=== PATIENT | male | born 1965 | race American Indian/Alaskan Native ===

== ENCOUNTER 2016-10-07 23:46 | Emergency (ER) | payer MEDICAID ==
--- NOTE | 2016-10-08 05:41 | Emergency Department Report ---
ED Recheck HPI - General Chief Complaint: Extremity Injury, Lower Stated Complaint: RT FOOT PAIN Time Seen by Provider: 10/08/16 05:06 Source: patient Mode of arrival: Ambulatory Limitations: No Limitations - History of Present Illness Initial Comments: Patient here requesting refill on Neurontin. He said he takes it for his right footpain he said he has chronic back pain that shoots down his legs into his foot and his neurologist said put him on Neurontin. Patient said he takes it 3 times a day but he does not know the dose. I told him that I cannot put him on Neurontin unless he knows the dose. He denies any fever or chills. Reports pain is 5 out of 10. Pain is achy. Denies being diabetic. Patient has a history of chronic pain and neuropathy. MD Complaint: medication refill request Returns Today for: request for prescription Context: ran out of medication Associated Symptoms: none - Related Data Previous Rx's Medication Instructions Recorded Last Taken Type traMADol [Ultram 50 MG tab] 50 mg PO Q6HR PRN #20 tablet 10/08/16 Unknown Rx Allergies Allergy/AdvReac Type Severity Reaction Status Date / Time No Known Allergies Allergy Unverified 10/08/16 00:21 ED Review of Systems ROS: Stated complaint: RT FOOT PAIN Other details as noted in HPI Comment: All other systems reviewed and negative Constitutional: denies: chills, fever Respiratory: no symptoms reported Cardiovascular: denies: chest pain, palpitations, edema, syncope Gastrointestinal: denies: abdominal pain, nausea, vomiting, diarrhea Musculoskeletal: arthralgia. denies: back pain Skin: denies: rash Neurological: denies: headache, weakness, numbness, paresthesias, confusion, abnormal gait, vertigo ED Past Medical Hx - Past Medical History Previous Medical History?: Yes Additional medical history: chronic foot pain - Surgical History Past Surgical History?: No - Family History Family history: no significant - Social History Smoking Status: Never Smoker Substance Use Type: None - Medications Home Medications: Home Medications Medication Instructions Recorded Confirmed Last Taken Type traMADol [Ultram 50 MG tab] 50 mg PO Q6HR PRN #20 tablet 10/08/16 Unknown Rx ED Physical Exam - General Limitations: No Limitations General appearance: alert, in no apparent distress - Head Head exam: Present: atraumatic, normocephalic, normal inspection - Eye Eye exam: Present: normal appearance, PERRL, EOMI Pupils: Present: normal accommodation - Neck Neck exam: Present: normal inspection, full ROM. Absent: tenderness, meningismus, lymphadenopathy - Respiratory Respiratory exam: Present: normal lung sounds bilaterally. Absent: respiratory distress, chest wall tenderness - Cardiovascular Cardiovascular Exam: Present: regular rate, normal rhythm, normal heart sounds - Extremities Exam Extremities exam: Present: normal inspection, full ROM, normal capillary refill. Absent: tenderness, pedal edema, joint swelling, calf tenderness - Neurological Exam Neurological exam: Present: alert, oriented X3, normal gait, reflexes normal. Absent: motor sensory deficit - Psychiatric Psychiatric exam: Present: normal affect, normal mood - Skin Skin exam: Present: warm, dry, intact, normal color. Absent: rash ED Course Vital Signs 10/08/16 00:22 Temperature 98.4 F Pulse Rate 77 Respiratory 16 Rate Blood Pressure 123/81 O2 Sat by Pulse 99 Oximetry - Reevaluation(s) Reevaluation #1: 10/08/16 06:44 Patient stable throughout ED stay. I discussed the patient that I can't give him Ultram for a few days but he will need to know the dose of his Neurontin for refill. I also discussed with him that he needs to go to [facility]. Does not have a primary care physician for management of chronic medical problem. ED Recheck MDM - Differential Diagnosis Prescription Refill(s) - Medical Decision Making ED course: An here requesting refill on Neurontin and he does not go to dialysis that he takes. He has chronic lumbar radiculopathy and he said he takes Neurontin 3 times a day. He said he has seen neurologists at [place] in the past but he has not seen an urologist at present. I discussed the patient that I can't give him Ultram but I will not refill his Neurontin because I do not know the dose and neither does he. Patient agreed and also agreed to follow -up with [facility]. discharged home in stable condition with prescription for Neurontin Critical care attestation.: If time is entered above; I have spent that time in minutes in the direct care of this critically ill patient, excluding procedure time. ED Disposition Clinical Impression: Medication refill Disposition: DISCHARGED TO HOME OR SELFCARE Is pt being admited?: No Does the pt Need Aspirin: No Condition: Stable Instructions: Chronic Pain (ED) Additional Instructions: Please follow-up with [facility] in 2-3 days for management of chronic medical problem if you do not have a primary care physician. He did have a primary care physician please call him today to schedule an appointment for follow-up visit. Take medication as prescribed. Prescriptions: traMADol [Ultram 50 MG tab] 50 mg PO Q6HR PRN #20 tablet PRN Reason: Pain Referrals: PRIMARY CARE,MD [Primary Care Provider] - 2-3 Days [facility] [Outside] - 2-3 Days Forms: Work/School Release Form(ED)
[2016-10-08 06:56] VITALS: BP 120/70
== END 2016-10-08 07:05 | disposition home or self-care (01) ==
LOC: ED 23:46
DX: Z76.0 Encounter for issue of repeat prescription (principal); G89.29 Other chronic pain
CPT/HCPCS: 99282

== ENCOUNTER 2017-02-01 00:55 | Emergency (ER) | payer MEDICAID, OTHER ==
[2017-02-01 01:05] VITALS: BP 123/84
[2017-02-01] MEDS ORDERED: TORADOL IM ONE (04:11)
[2017-02-01] MEDS ORDERED: DECADRON IM STA (04:11)
--- NOTE | 2017-02-01 04:11 | Emergency Department Report ---
HPI - General Chief Complaint: Back Pain/Injury Time Seen by Provider: 02/01/17 04:11 - HPI HPI: This patient and has chronic back pain and here because he states that his insurance does not work at the pain clinic that he used to go to. He is complaining of lower back pain and right foot pain 2 months. He said he is in the process of getting a new pain clinic and he would like to have some pain medicine. Pain to right foot is 9 out of 10 and lower back is 8 out of 10. Denies any loss of bowel or bladder function. He said it is numb to the side of his right big toe and this is not new. Patient said he is mental podiatrists and they told him that he have flat foot and gave him inserted but he has a minimal oriented. Pills to back is achy. Denies any new injuries. He was here on 10/08/2016 and was given tramadol. Patient studies been taking [id number] medication without any help. Denies any nausea or vomiting. Denies any urinary burning frequency or urgency. Denies any fever or chills. Denies any abdominal pain. ED Past Medical Hx - Past Medical History Previous Medical History?: Yes Additional medical history: chronic foot pain / CHRONIC BACK PAIN - Surgical History Past Surgical History?: No - Family History Family history: no significant - Social History Smoking Status: Current Every Day Smoker Substance Use Type: None Other Social History: Patient said he single - Medications Home Medications: Home Medications Medication Instructions Recorded Confirmed Last Taken Type traMADol [Ultram 50 MG tab] 50 mg PO Q6HR PRN #20 tablet 02/01/17 Unknown Rx ED Review of Systems ROS: Stated complaint: BACK/FOOT PAIN Other details as noted in HPI Comment: All other systems reviewed and negative Constitutional: denies: chills, fever Eyes: denies: eye pain, vision change ENT: denies: ear pain, throat pain, congestion Respiratory: no symptoms reported Cardiovascular: denies: chest pain, palpitations, edema, syncope Gastrointestinal: denies: abdominal pain, nausea, vomiting, diarrhea, constipation Genitourinary: denies: urgency, dysuria, frequency, hematuria, discharge, testicular pain, testicular mass Musculoskeletal: back pain, arthralgia. denies: joint swelling, myalgia Skin: denies: rash Neurological: numbness (right great toe). denies: headache, weakness, paresthesias, confusion, abnormal gait, vertigo Physical Exam - Physical Exam Vital Signs: Vital Signs 02/01/17 00:59 Temperature 98.4 F Pulse Rate 68 Respiratory 20 Rate Blood Pressure 123/84 O2 Sat by Pulse 100 Oximetry General: This is a 51-year-old male well-nourished well-developed in no acute distress. Physical Exam: Head: Normocephalic, atraumatic. No abrasions, laceration or contusion Neck: Supple, no adenopathy. Full range of motion. No C-spine tenderness. No muscular tenderness Mouth: Moist, no pharyngeal exudate or erythema. Uvula is midline and oral airways patent. Tongue is normal. No trismus. No peritonsillar abscess. Abdomen: Nontender the palpation in all quadrants, no guarding or rebound tenderness. No CVA tenderness and normal bowel sounds in all quadrants. Extremity: No clubbing, cyanosis or edema. +2 pulses in all extremities. No neurovascular compromise. Capillary refill is less than 3 seconds. Good color , sensation, movement and temperature in all extremities. Able to ambulate without any difficulties. Both feet without any laceration, abrasions, erythema , dryness or tenderness to palpate. MSK: Full Range of motion to all extremities, no joint crepitus, deformity, erythema, swelling. No signs of tendon or ligament injury. +5/5 strength in all extremities Skin: Clean dry and intact, no rash or lesions. PSYCH: Normal mood and behavior. Neurological: GCS of 15, speech is clear and fluid, alert and oriented 3. Normal gait, negative Romberg and negative pronator drift. No motor or sensory deficit. No focal neurological deficit. Normal 2 point discrimination. Normal sensation to light touch. No facial drooping noted. Back: No vertebral tenderness, no paraspinal tenderness, no saddle anesthesia,. Patient able to relate without any difficulties. She unable to squat without any difficulties. ED Course Vital Signs 02/01/17 00:59 Temperature 98.4 F Pulse Rate 68 Respiratory 20 Rate Blood Pressure 123/84 O2 Sat by Pulse 100 Oximetry - Reevaluation(s) Reevaluation #1: 02/01/17 05:27 Patient given Toradol and Decadron in the emergency room for pain. Which she voiced relieve this pain. ED Medical Decision Making - Medical Decision Making ED course: Patient here with chronic back pain with history of lower back pain from previous injuries. He is also complaining of chronic right foot pain this has been going on for 2 months it is been seen by orthopedic doctor. Patient has been evaluated and I gave him Decadron 10 mg IM and Toradol 60 mg IM in the emergency room which alleviated his bach and foot pain. I discussed with him that he will need to follow-up with Dr. Sykes and also Dr. Quach for further. Patient said he had pain doctor in the past but they dropped him and he is in the process of finding another pain clinic Diagnostic and labs: No diagnostic test necessary Review of previous visits. Patient has been here in the past for management of pain. Assessment: Acute and chronic back pain, arthralgia right foot. Chronic pain Plan follow-up: Patient given Decadron and Toradol in the emergency room. She discharged home with prescription for tramadol which she has had in the past. He is to follow-up with orthopedic doctor and distribution lead. Critical care attestation.: If time is entered above; I have spent that time in minutes in the direct care of this critically ill patient, excluding procedure time. ED Disposition Clinical Impression: Acute exacerbation of chronic low back pain, Arthralgia of right foot, Paresthesia Disposition: DC-01 TO HOME OR SELFCARE Is pt being admited?: No Does the pt Need Aspirin: No Condition: Stable Instructions: Paresthesia (ED), Lumbar Radiculopathy (ED), Arthralgia (ED), Chronic Back Pain (ED) Additional Instructions: Please follow up with primary care as recommended Increase fluid intake Take medication as prescribed . Follow-up with orthopedic doctor as instructed All up with distribution lead as instructed Prescriptions: traMADol [Ultram 50 MG tab] 50 mg PO Q6HR PRN #20 tablet PRN Reason: Pain Referrals: PRIMARY CARE, [Primary Care Provider] - 3-5 Days HAILEY QUACH DPM [Staff Physician] - 3-5 Days LIV SYKES MD [Staff Physician] - 3-5 Days
== END 2017-02-01 05:36 | disposition home or self-care (01) ==
LOC: ED 00:55
DX: M54.5 Low back pain (principal); M79.671 Pain in right foot; R20.9 Unspecified disturbances of skin sensation; G89.29 Other chronic pain; F17.200 Nicotine dependence, unspecified, uncomplicated
CPT/HCPCS: 96372; 99282; J1100; J1885

== ENCOUNTER 2019-01-22 16:10 | Emergency (ER) | payer OTHER ==
[2019-01-22 16:47] VITALS: BP 128/79
--- NOTE | 2019-01-22 16:49 | Event Note ---
ED Screening Note ED Screening Note: pt presents with chronic back pain. states he sees a pain specialist in [facility] [place] his pain specialist was moved to [place]. states he also has a primary care doctor. states he is waiting for a referral to see the new pain specialist. states he is seeing a new orthopedic tomorrow. states he has been in physical therapy in the past. pt is ambulatory. denies any bowel or bladder incontinence. pt denies any unilateral weakness. PMHx arthritis. no allergies to meds. no hx of DM. pt states he is now also checking to the ER for chest pain This initial assessment/diagnostic orders/clinical plan/treatment(s) is/are subject to change based on patients health status, clinical progression and re- assessment by fellow clinical providers in the ED. Further treatment and workup at subsequent clinical providers discretion. Patient/guardian urged not to elope from the ED as their condition may be serious if not clinically assessed and managed. Initial orders include: CP protocol
[2019-01-22 17:22] LABS: Eosinophils # (Auto) 0.1 K/mm3 (0.0-0.4); Eosinophils % (Auto) 2.6 % (0.0-4.3); Hematocrit 43.7 % (35.5-45.6); Hemoglobin 14.4 gm/dl (11.8-15.2); Lymphocytes # (Auto) 2.2 K/mm3 (1.2-5.4); Lymphocytes % (Auto) 48.3 % (13.4-35.0); Mean Corpuscular HGB Conc 33 % (32-34); Mean Corpuscular Volume 95 fl (84-94); Monocytes # (Auto) 0.4 K/mm3 (0.0-0.8); Monocytes % (Auto) 8.4 % (0.0-7.3); Platelet Count 192 K/mm3 (140-440); Red Blood Count 4.59 M/mm3 (3.65-5.03); Red Cell Distribution Width 13.7 % (13.2-15.2)
--- NOTE | 2019-01-22 17:24 | XRay Report ---
CHEST 2 VIEWS INDICATION / CLINICAL INFORMATION: Chest Pain. COMPARISON: None available. FINDINGS: SUPPORT DEVICES: None. HEART / MEDIASTINUM: No significant abnormality. LUNGS / PLEURA: No significant pulmonary or pleural abnormality. No pneumothorax. ADDITIONAL FINDINGS: No significant additional findings. IMPRESSION: 1. No acute findings. Signer Name: Migue Saleem MD Signed: 01/22/2019 5:20 PM Workstation Name: [id number]
[2019-01-22 17:49] LABS: Alanine Aminotransferase 11 units/L (7-56); Albumin 4.2 g/dL (3.9-5); BUN/Creatinine Ratio 13; Blood Urea Nitrogen 10 mg/dL (9-20); Hemolysis Index 14
[2019-01-22] MEDS ORDERED: PERCOCET 5/325 PO ONE (19:22)
[2019-01-22] MEDS ORDERED: TORADOL IM ONE (19:22)
[2019-01-22] MEDS ORDERED: DECADRON IM ONE (19:22)
[2019-01-22] MEDS ORDERED: ZOFRAN ODT PO ONE (19:22)
--- NOTE | 2019-01-22 21:05 | Emergency Department Report ---
ED General Adult HPI - General Chief complaint: Chest Pain Stated complaint: NECK/BACK PAIN Time Seen by Provider: 01/22/19 16:44 Source: patient Mode of arrival: Ambulatory Limitations: No Limitations - History of Present Illness Initial comments: Patient is a 53-year-old -[place] male with a history of chronic back or neck pain presents to the ED with acute exacerbation of his chronic back pain and neck pain after running out of his chronic pain medications for the last 1 month. Patient states that his in the transition period, and changing his current pain specialist. Patient states that he is currently waiting for a scheduled appointment with a new pain specialist but has not had any of his chronic pain management medications for over 2 months. Patient states that he usually takes 5 Percocet tablets per day with Gabapentin 800 mg 3 times a day. Patient states that the pain has worsened in the last 2 weeks especially given that he has not taken his medications. Patient denies chest pain, shortness of breath, traumatic injury, heavy lifting, numbness and tingling of the upper and lower extremities bilaterally, change in vision, headache, syncope, seizures, nausea and vomiting or abdominal pain, cough or fever and chills. MD Complaint: chronic back pain exacerbation, neck pain -: Gradual, year(s) (many) Location: back Radiation: back, neck Severity scale (0 -10): 6 Quality: aching, sharp Consistency: constant Improves with: none Worsens with: movement Associated Symptoms: denies other symptoms. denies: confusion, chest pain, cough, diaphoresis, fever/chills, loss of appetite, malaise, nausea/vomiting, rash, seizure, shortness of breath, syncope, weakness, other Treatments Prior to Arrival: none - Related Data Home Medications Medication Instructions Recorded Confirmed Last Taken ALBUTEROL Inhaler(NF) [VENTOLIN 2 puff IH BID 04/16/18 04/28/18 04/23/18 Inhaler(NF)] Cholecalciferol (Vitamin D3) 10,000 unit PO DAILY 04/16/18 04/28/18 04/18/18 [Vitamin D3 10,000 unit] Gabapentin [Neurontin] 300 mg PO QID 04/16/18 04/28/18 04/18/18 Lactulose [Constulose] 10 gm PO PRN PRN 04/16/18 04/28/18 04/18/18 Naloxegol Oxalate [Movantik] 25 mg PO DAILY 04/16/18 04/28/18 04/18/18 Naproxen Sodium [Aleve] 220 mg PO PRN PRN 04/16/18 04/28/18 04/18/18 Omeprazole Magnesium [PriLOSEC Otc] 20 mg PO QDAY 04/16/18 04/28/18 04/18/18 Oxycodone HCl/Acetaminophen 1 each PO 5XD PRN 04/16/18 04/28/18 04/28/18 [Percocet 10/325 mg] Previous Rx's Medication Instructions Recorded Last Taken Type Gabapentin [Neurontin] 800 mg PO Q8H PRN #30 tablet 01/22/19 Unknown Rx Naproxen [Naproxen DR] 375 mg PO Q12H PRN #20 tablet.dr 01/22/19 Unknown Rx Prednisone [predniSONE 10 mg 10 mg PO .TAPER #1 tab.ds.pk 01/22/19 Unknown Rx (6-Day Pack, 21 Tabs)] Tizanidine HCl [Zanaflex 4mg CAP] 4 mg PO Q8H PRN #21 capsule 01/22/19 Unknown Rx traMADol [Ultram] 50 mg PO Q6HR PRN 3 Days #12 tablet 01/22/19 Unknown Rx Allergies Allergy/AdvReac Type Severity Reaction Status Date / Time No Known Allergies Allergy Verified 01/22/19 16:11 ED Review of Systems ROS: Stated complaint: NECK/BACK PAIN Other details as noted in HPI Constitutional: denies: chills, fever Eyes: denies: eye pain, eye discharge, vision change ENT: denies: ear pain, throat pain Respiratory: denies: cough, shortness of breath, wheezing Cardiovascular: denies: chest pain, palpitations Endocrine: no symptoms reported Gastrointestinal: denies: abdominal pain, nausea, diarrhea Genitourinary: denies: urgency, dysuria Musculoskeletal: back pain (mid-posterior thoracic and neck pain). denies: joint swelling, arthralgia Skin: denies: rash, lesions Neurological: denies: headache, weakness, paresthesias Psychiatric: denies: anxiety, depression Hematological/Lymphatic: denies: easy bleeding, easy bruising ED Past Medical Hx - Past Medical History Previous Medical History?: Yes Hx Hypertension: No Hx GERD: Yes Hx HIV: No Additional medical history: chronic foot pain / CHRONIC BACK PAIN - Surgical History Past Surgical History?: No - Social History Smoking Status: Current Every Day Smoker - Medications Home Medications: Home Medications Medication Instructions Recorded Confirmed Last Taken Type ALBUTEROL Inhaler(NF) [VENTOLIN 2 puff IH BID 04/16/18 04/28/18 04/23/18 History Inhaler(NF)] Cholecalciferol (Vitamin D3) 10,000 unit PO DAILY 04/16/18 04/28/18 04/18/18 History [Vitamin D3 10,000 unit] Gabapentin [Neurontin] 300 mg PO QID 04/16/18 04/28/18 04/18/18 History Lactulose [Constulose] 10 gm PO PRN PRN 04/16/18 04/28/18 04/18/18 History Naloxegol Oxalate [Movantik] 25 mg PO DAILY 04/16/18 04/28/18 04/18/18 History Naproxen Sodium [Aleve] 220 mg PO PRN PRN 04/16/18 04/28/18 04/18/18 History Omeprazole Magnesium [PriLOSEC Otc] 20 mg PO QDAY 04/16/18 04/28/18 04/18/18 History Oxycodone HCl/Acetaminophen 1 each PO 5XD PRN 04/16/18 04/28/18 04/28/18 History [Percocet 10/325 mg] Gabapentin [Neurontin] 800 mg PO Q8H PRN #30 tablet 01/22/19 Unknown Rx Naproxen [Naproxen DR] 375 mg PO Q12H PRN #20 tablet.dr 01/22/19 Unknown Rx Prednisone [predniSONE 10 mg 10 mg PO .TAPER #1 tab.ds.pk 01/22/19 Unknown Rx (6-Day Pack, 21 Tabs)] Tizanidine HCl [Zanaflex 4mg CAP] 4 mg PO Q8H PRN #21 capsule 01/22/19 Unknown Rx traMADol [Ultram] 50 mg PO Q6HR PRN 3 Days #12 tablet 01/22/19 Unknown Rx ED Physical Exam - General Limitations: No Limitations General appearance: alert, in no apparent distress - Head Head exam: Present: atraumatic, normocephalic, normal inspection - Eye Eye exam: Present: normal appearance, PERRL, EOMI. Absent: scleral icterus, conjunctival injection, nystagmus, periorbital swelling, periorbital tenderness, other - ENT ENT exam: Present: normal exam, normal orophraynx, mucous membranes moist, TM's normal bilaterally, normal external ear exam - Neck Neck exam: Present: normal inspection, tenderness (Palpable cervical paraspinal musculoskeletal tenderness), full ROM - Respiratory Respiratory exam: Present: normal lung sounds bilaterally. Absent: respiratory distress, wheezes, rales, rhonchi, chest wall tenderness, accessory muscle use, decreased breath sounds, prolonged expiratory - Cardiovascular Cardiovascular Exam: Present: regular rate, normal rhythm. Absent: systolic murmur, diastolic murmur, rubs, gallop - GI/Abdominal GI/Abdominal exam: Present: soft, normal bowel sounds. Absent: distended, tenderness, guarding, hyperactive bowel sounds, hypoactive bowel sounds, organomegaly - Rectal Rectal exam: Present: deferred - Extremities Exam Extremities exam: Present: normal inspection, full ROM, normal capillary refill - Back Exam Back exam: Present: normal inspection, full ROM, tenderness, muscle spasm, paraspinal tenderness (Palpable lumbosacral paraspinal musculoskeletal tenderness). Absent: CVA tenderness (L) - Neurological Exam Neurological exam: Present: alert, oriented X3, CN II-XII intact, normal gait, reflexes normal - Psychiatric Psychiatric exam: Present: normal affect, normal mood - Skin Skin exam: Present: warm, dry, intact, normal color. Absent: rash ED Course Vital Signs 01/22/19 16:45 Temperature 98 F Pulse Rate 59 L Respiratory 18 Rate Blood Pressure 128/79 [Right] O2 Sat by Pulse 100 Oximetry - Reevaluation(s) Reevaluation #1: 01/22/19 21:07 The patient is alert and oriented 3 and is not in distress with normal vital signs. Patient is treated for pain in the ED and lab test results are unremarkable including troponin levels. EKG shows sinus bradycardia with a ventricular rate of [address] or T-wave abnormalities. Chest x-ray shows no acute cardiopulmonary abnormalities or thoracic spine abnormalities. On r eevaluation, patient's pain is well-controlled with medications and will discharge home on pain medications and muscle relaxants and advised to follow-up with his primary clinic in 2-3 days for reevaluation. Patient was advised that the ED is not responsible for the management of his chronic back pain but that he needs to be referred to a pain clinic soon in order to establish care. Patient was advised to return to the ED immediately if symptoms get worse. 01/22/19 21:08 ED Medical Decision Making - Lab Data Result diagrams: 01/22/19 17:15 01/22/19 17:15 - EKG Data Rate: bradycardia - EKG Data Interpretation: normal EKG 01/22/19 21:09 Sinus bradycardia with ventricular rate of 54 bpm, and no ST or T wave abnormalities - Radiology Data Radiology results: report reviewed, image reviewed chest x-ray: No acute cardiopulmonary abnormalities - Medical Decision Making The patient is alert and oriented 3 and is not in distress with normal vital signs. Patient is treated for pain in the ED and lab test results are unremarkable including troponin levels. EKG shows sinus bradycardia with a ventricular rate of [address] or T-wave abnormalities. Chest x-ray shows no acute cardiopulmonary abnormalities or thoracic spine abnormalities. On reevaluation, patient's pain is well-controlled with medications and will discharge home on pain medications and muscle relaxants and advised to follow-up with his primary clinic in 2-3 days for reevaluation. Patient was advised that the ED is not responsible for the management of his chronic back pain but that he needs to be referred to a pain clinic soon in order to establish care. Patient was advised to return to the ED immediately if symptoms get worse. - Differential Diagnosis chronic back pain; muscle spasm; Chronic neck pain, ACS, muscle strain Critical care attestation.: If time is entered above; I have spent that time in minutes in the direct care of this critically ill patient, excluding procedure time. ED Disposition Clinical Impression: Exacerbation of chronic back pain, Spasm of thoracic back muscle, Cervical paraspinous muscle spasm Disposition: DC-01 TO HOME OR SELFCARE Is pt being admited?: No Does the pt Need Aspirin: No Condition: Stable Instructions: Chronic Back Pain (ED), Muscle Spasm (ED) Additional Instructions: Take medications with food, drink plenty of fluids and follow up with your primary care physician in 7-10 days, also follow up with your chronic pain specialist as scheduled. Return to the ED immediately if symptoms get worse. Prescriptions: Naproxen [Shanon LICONA] 375 mg PO Q12H PRN #20 tablet. PRN Reason: Pain , Severe (7-10) Gabapentin [Neurontin] 800 mg PO Q8H PRN #30 tablet PRN Reason: Pain , Severe (7-10) Prednisone [predniSONE 10 mg (6-Day Pack, 21 Tabs)] 10 mg PO .TAPER #1 tab.ds.pk traMADol [Ultram] 50 mg PO Q6HR PRN 3 Days #12 tablet PRN Reason: Pain Tizanidine HCl [Zanaflex 4mg CAP] 4 mg PO Q8H PRN #21 capsule PRN Reason: Spasms Referrals: DANIELE RHODES MD [Primary Care Provider] - 3-5 Days Time of Disposition: 21:12 Print Language: KINYARWANDA
== END 2019-01-22 21:25 | disposition home or self-care (01) ==
LOC: ED 16:10
DX: M54.9 Dorsalgia, unspecified (principal); G89.29 Other chronic pain; M62.830 Muscle spasm of back; M62.838 Other muscle spasm; K21.9 Gastro-esophageal reflux disease without esophagitis; F17.200 Nicotine dependence, unspecified, uncomplicated; Z79.899 Other long term (current) drug therapy
CPT/HCPCS: 36415; 71046; 80053; 83880; 84484; 85025; 93005; 93010; 96372; 99284; J1100; J1885; Q0162

== ENCOUNTER 2019-02-27 14:21 | Emergency (ER) | payer OTHER ==
--- NOTE | 2019-02-27 14:39 | Event Note ---
ED Screening Note ED Screening Note: a/c back pain cant get in with pain specialist and rash on both legs pmh back pain gerd rx suppose to be on jones 800/percocet/jones--off because pain MD moved and he has Medicaid issues gerd med psh none This initial assessment/diagnostic orders/clinical plan/treatment(s) is/are subject to change based on patients health status, clinical progression and re- assessment by fellow clinical providers in the ED. Further treatment and workup at subsequent clinical providers discretion. Patient/guardian urged not to elope from the ED as their condition may be serious if not clinically assessed and managed. Initial orders include: to [facility] for Rx
--- NOTE | 2019-02-27 16:12 | Emergency Department Report ---
ED Rash HPI - HPI Chief Complaint: Skin Rash Stated Complaint: RASH/POSS POISON PARTH ON BACK Time Seen by Provider: 02/27/19 14:37 Duration: 5 Days Location: Upper Extremities, Lower Extremities Suspected Cause: Food (got into poison parth) Rash Symptoms: Yes Itching, No Facial Swelling, No Tongue/Oral Swelling, No Breathing Difficulties, No Choking Sensation, No Wheezing/Dyspnea, No Peeling, No Blistering, No Fever, No Lightheaded, No Malaise, No Myalgias Severity: mild ED Review of Systems ROS: Stated complaint: RASH/POSS POISON PARTH ON BACK Other details as noted in HPI Comment: All other systems reviewed and negative ED Past Medical Hx - Past Medical History Previous Medical History?: Yes Hx Hypertension: No Hx GERD: Yes Hx HIV: No Additional medical history: chronic foot pain / CHRONIC BACK PAIN - Social History Smoking Status: Never Smoker - Medications Home Medications: Home Medications Medication Instructions Recorded Confirmed Last Taken Type ALBUTEROL Inhaler(NF) [VENTOLIN 2 puff IH BID 04/16/18 04/28/18 04/23/18 History Inhaler(NF)] Cholecalciferol (Vitamin D3) 10,000 unit PO DAILY 04/16/18 04/28/18 04/18/18 History [Vitamin D3 10,000 unit] Gabapentin [Neurontin] 300 mg PO QID 04/16/18 04/28/18 04/18/18 History Lactulose [Constulose] 10 gm PO PRN PRN 04/16/18 04/28/18 04/18/18 History Naloxegol Oxalate [Movantik] 25 mg PO DAILY 04/16/18 04/28/18 04/18/18 History Naproxen Sodium [Aleve] 220 mg PO PRN PRN 04/16/18 04/28/18 04/18/18 History Omeprazole Magnesium [PriLOSEC Otc] 20 mg PO QDAY 04/16/18 04/28/18 04/18/18 History Oxycodone HCl/Acetaminophen 1 each PO 5XD PRN 04/16/18 04/28/18 04/28/18 History [Percocet 10/325 mg] Gabapentin [Neurontin] 800 mg PO Q8H PRN #30 tablet 01/22/19 Unknown Rx Naproxen [Naproxen DR] 375 mg PO Q12H PRN #20 tablet.dr 01/22/19 Unknown Rx Prednisone [predniSONE 10 mg 10 mg PO .TAPER #1 tab.ds.pk 01/22/19 Unknown Rx (6-Day Pack, 21 Tabs)] Tizanidine HCl [Zanaflex 4mg CAP] 4 mg PO Q8H PRN #21 capsule 01/22/19 Unknown Rx traMADol [Ultram] 50 mg PO Q6HR PRN 3 Days #12 tablet 01/22/19 Unknown Rx Mometasone Furoate [Elocon] 45 gm TP BID #1 cream..g. 02/27/19 Unknown Rx hydrOXYzine HCL [Atarax] 25 mg PO Q6HR PRN #20 tablet 02/27/19 Unknown Rx predniSONE [Deltasone] 50 mg PO QDAY #5 tab 02/27/19 Unknown Rx Rash Exam - Exam General: Vital signs noted. No distress. Alert and acting appropriately. HEENT: No Periorbital Edema, No Conjuctival Injection, No Chemosis, No Perioral Edema, No Tongue Edema, No Uvular Edema, No Compromised Airway, No Drooling Lungs: Yes Good Air Exchange (Normal Breath Sounds), No Wheezes, No Ronchi, No Stridor, No Cough, No Labored Respirations, No Retractions, No Use of Accessory Muscles, No Other Abnormal Lung Sounds Heart: Yes Regular, No Murmur Front/Back of Body, Lg (Color): 1 - Rest of this region 2 - Rashrash 3 - Rash 4 - Rash Skin: Yes Maculopapular Rash, Yes Erythema, No Urticarial Rash, No Morbilliform rash, No Bulla(e), No Excoriations, No Weeping, No Tenderness, No Edema, No Encr ustations Other: Positive: Abdomen Normal, Neurologic Normal, Musculoskeletal Normal ED Course Vital Signs 02/27/19 14:37 Temperature 97.5 F L Pulse Rate 59 L Blood Pressure 111/68 O2 Sat by Pulse 100 Oximetry ED Medical Decision Making - Medical Decision Making Rash to the extremity from reported poison parth pruritic in nature. No discharge, no feverish feelings. Also some very concerned about receiving pain medication. States he is in between pain management as he was discharged against his will from one pain management due to a contractual situation Critical care attestation.: If time is entered above; I have spent that time in minutes in the direct care of this critically ill patient, excluding procedure time. ED Disposition Clinical Impression: Contact dermatitis Disposition: DC- TO HOME OR SELFCARE Is pt being admited?: No Does the pt Need Aspirin: No Condition: Stable Instructions: Poison Parth (ED), Contact Dermatitis (ED) Prescriptions: hydrOXYzine HCL [Atarax] 25 mg PO Q6HR PRN #20 tablet PRN Reason: Itching predniSONE [Deltasone] 50 mg PO QDAY #5 tab Mometasone Furoate [Elocon] 45 gm TP BID #1 cream..g. Referrals: PRIMARY CARE, [Referring] - 3-5 Days [facility] [Provider Group] - 3-5 Days
[2019-02-27 16:13] VITALS: BP 116/70
== END 2019-02-27 16:11 | disposition home or self-care (01) ==
LOC: ED 14:21
DX: L25.9 Unspecified contact dermatitis, unspecified cause (principal); K21.9 Gastro-esophageal reflux disease without esophagitis; G89.29 Other chronic pain; Z79.899 Other long term (current) drug therapy
CPT/HCPCS: 99282

== ENCOUNTER 2021-11-12 12:30 | Emergency (ER) | payer MEDICAID, OTHER ==
[2021-11-12] MEDS ORDERED: LIDOCAINE-MPF (1%) 10 MG/1 ML VIAL 5 ML INFILTRATI ONE (14:28)
[2021-11-12 14:42] VITALS: BP 141/82
--- NOTE | 2021-11-12 15:39 | Emergency Department Report ---
ED Male HPI - General Chief complaint: Urogenital-Male Stated complaint: PENIS BURNING Time Seen by Provider: 11/12/21 14:28 Source: patient Mode of arrival: Ambulatory Limitations: No Limitations - History of Present Illness Initial comments: This is a 55-year-old male nontoxic, well nourished in appearance, no acute signs of distress presents to the ED with c/o of penile discharge and stated that he was involved in sexual intercourse and other partner has gonorrhea. Patient denies any testicular pain or swelling. Patient denies any penile ulcers or lesions. Patient denies any nausea, vomiting, chest pain, shortness of breathe, fever, chills, headache, back pain, numbness, tingling, stiff neck. Patient denies any urinary symptoms. Patient denies any allergies. -: days(s) Location: penis Radiation: none Improves with: none Worsens with: none discharge. denies: swelling, mass, rash, urinary retention, blood in urine, dysuria, fever, nausea/vomiting, incontinence - Related Data Home Medications Medication Instructions Recorded Confirmed Last Taken ALBUTEROL Inhaler(NF) [VENTOLIN 2 puff IH BID 04/16/18 04/28/18 04/23/18 Inhaler(NF)] Cholecalciferol (Vitamin D3) 10,000 unit PO DAILY 04/16/18 04/28/18 04/18/18 [Vitamin D3 10,000 unit] Gabapentin [Neurontin] 300 mg PO QID 04/16/18 04/28/18 04/18/18 Lactulose [Constulose] 10 gm PO PRN PRN 04/16/18 04/28/18 04/18/18 Naloxegol Oxalate [Movantik] 25 mg PO DAILY 04/16/18 04/28/18 04/18/18 Naproxen Sodium [Aleve] 220 mg PO PRN PRN 04/16/18 04/28/18 04/18/18 Omeprazole Magnesium [PriLOSEC Otc] 20 mg PO QDAY 04/16/18 04/28/18 04/18/18 Oxycodone HCl/Acetaminophen 1 each PO 5XD PRN 04/16/18 04/28/18 04/28/18 [Percocet 10/325 mg] Previous Rx's Medication Instructions Recorded Last Taken Type Gabapentin [Neurontin] 800 mg PO Q8H PRN #30 tablet 01/22/19 Unknown Rx Naproxen [Naproxen DR] 375 mg PO Q12H PRN #20 tablet.dr 01/22/19 Unknown Rx Prednisone [predniSONE 10 mg 10 mg PO .TAPER #1 tab.ds.pk 01/22/19 Unknown Rx (6-Day Pack, 21 Tabs)] Tizanidine HCl [Zanaflex 4mg CAP] 4 mg PO Q8H PRN #21 capsule 01/22/19 Unknown Rx traMADoL [Ultram] 50 mg PO Q6HR PRN 3 Days #12 tablet 01/22/19 Unknown Rx Mometasone Furoate [Elocon] 45 gm TP BID #1 cream..g. 02/27/19 Unknown Rx hydrOXYzine HCL [Atarax] 25 mg PO Q6HR PRN #20 tablet 02/27/19 Unknown Rx predniSONE [Deltasone] 50 mg PO QDAY #5 tab 02/27/19 Unknown Rx Doxycycline Hyclate 100 mg PO BID #14 cap 11/12/21 Unknown Rx Allergies Allergy/AdvReac Type Severity Reaction Status Date / Time No Known Allergies Allergy Verified 01/22/19 16:11 ED Review of Systems ROS: Stated complaint: PENIS BURNING Other details as noted in HPI Comment: All other systems reviewed and negative Constitutional: denies: chills, fever Eyes: denies: eye pain, eye discharge, vision change ENT: denies: ear pain, throat pain Respiratory: denies: cough, shortness of breath, wheezing Cardiovascular: denies: chest pain, palpitations Endocrine: no symptoms reported Gastrointestinal: denies: abdominal pain, nausea, diarrhea Genitourinary: denies: urgency, dysuria Musculoskeletal: denies: back pain, joint swelling, arthralgia Skin: denies: rash, lesions Neurological: denies: headache, weakness, paresthesias Psychiatric: denies: anxiety, depression Hematological/Lymphatic: denies: easy bleeding, easy bruising ED Past Medical Hx - Past Medical History Hx Hypertension: No Hx GERD: Yes Hx HIV: No Additional medical history: chronic foot pain / CHRONIC BACK PAIN - Social History Smoking Status: Never Smoker - Medications Home Medications: Home Medications Medication Instructions Recorded Confirmed Last Taken Type ALBUTEROL Inhaler(NF) [VENTOLIN 2 puff IH BID 04/16/18 04/28/1818 History Inhaler(NF)] Cholecalciferol (Vitamin D3) 10,000 unit PO DAILY 04/16/18 04/28/18 04/18/18 History [Vitamin D3 10,000 unit] Gabapentin [Neurontin] 300 mg PO QID 04/16/18 04/28/18 04/18/18 History Lactulose [Constulose] 10 gm PO PRN PRN 04/16/18 04/28/18 04/18/18 History Naloxegol Oxalate [Movantik] 25 mg PO DAILY 04/16/18 04/28/18 04/18/18 History Naproxen Sodium [Aleve] 220 mg PO PRN PRN 04/16/18 04/28/18 04/18/18 History Omeprazole Magnesium [PriLOSEC Otc] 20 mg PO QDAY 04/16/18 04/28/18 04/18/18 History Oxycodone HCl/Acetaminophen 1 each PO 5XD PRN 04/16/18 04/28/18 04/28/18 History [Percocet 10/325 mg] Gabapentin [Neurontin] 800 mg PO Q8H PRN #30 tablet 01/22/19 Unknown Rx Naproxen [Naproxen DR] 375 mg PO Q12H PRN #20 tablet.dr 01/22/19 Unknown Rx Prednisone [predniSONE 10 mg 10 mg PO .TAPER #1 tab.ds.pk 01/22/19 Unknown Rx (6-Day Pack, 21 Tabs)] Tizanidine HCl [Zanaflex 4mg CAP] 4 mg PO Q8H PRN #21 capsule 01/22/19 Unknown Rx traMADoL [Ultram] 50 mg PO Q6HR PRN 3 Days #12 tablet 01/22/19 Unknown Rx Mometasone Furoate [Elocon] 45 gm TP BID #1 cream..g. 02/27/19 Unknown Rx hydrOXYzine HCL [Atarax] 25 mg PO Q6HR PRN #20 tablet 02/27/19 Unknown Rx predniSONE [Deltasone] 50 mg PO QDAY #5 tab 02/27/19 Unknown Rx Doxycycline Hyclate 100 mg PO BID #14 cap 11/12/21 Unknown Rx ED Physical Exam - General Limitations: No Limitations General appearance: alert, in no apparent distress - Head Head exam: Present: atraumatic, normocephalic - Eye Eye exam: Present: normal appearance - Neck Neck exam: Present: full ROM. Absent: lymphadenopathy - Respiratory Respiratory exam: Absent: respiratory distress - Cardiovascular Cardiovascular Exam: Present: regular rate - GI/Abdominal GI/Abdominal exam: Present: soft, normal bowel sounds. Absent: distended, tenderness, guarding, rebound, rigid, diminished bowel sounds - Extremities Exam Extremities exam: Present: full ROM - Back Exam Back exam: Present: full ROM - Neurological Exam Neurological exam: Present: alert, oriented X3 - Psychiatric Psychiatric exam: Present: normal affect, normal mood - Skin Skin exam: Present: warm, dry, intact, normal color. Absent: rash ED Course Vital Signs 11/12/21 14:41 Temperature 98.5 F Pulse Rate 70 Respiratory 16 Rate Blood Pressure 141/82 [Right] - Reevaluation(s) Reevaluation #1: 11/12/21 15:38 Patient is speaking in full sentences with no signs of distress noted. ED Medical Decision Making - Medical Decision Making This is a 55-year-old male that presents with possible STD. Patient is stable was examined by me. There is no abdominal tenderness. Patient wanted empirical treatment so patient received 1 g Rocephin and discharged with doxycycline. Patient was instructed to Follow-up with a primary care doctor in 3-5 days or if symptoms worsen and continue return to emergency room as soon as possible. At time of discharge, the patient does not seem toxic or ill in appearance. No acute signs of distress noted. Patient agrees to discharge treatment plan of care. No further questions noted by the patient. Critical care attestation.: If time is entered above; I have spent that time in minutes in the direct care of this critically ill patient, excluding procedure time. ED Disposition Clinical Impression: Possible exposure to STD Disposition: HOME / SELF CARE / HOMELESS Is pt being admited?: No Does the pt Need Aspirin: No Condition: Stable Instructions: Safe Sex Additional Instructions: Follow-up with a primary care doctor in 3-5 days or if symptoms worsen and continue return to emergency room as soon as possible. Prescriptions: Doxycycline Hyclate 100 mg PO BID #14 cap Referrals: PRIMARY MD DAIN [Primary Care Provider] - 3-5 Days JOHNY POWELL MD [Staff Physician] - 3-5 Days Time of Disposition: 15:39
== END 2021-11-12 16:19 | disposition home or self-care (01) ==
LOC: ED 12:30
DX: Z20.2 Contact with and (suspected) exposure to infections with a predominantly sexual mode of transmission (principal); R36.9 Urethral discharge, unspecified; I10 Essential (primary) hypertension; K21.9 Gastro-esophageal reflux disease without esophagitis; Z79.899 Other long term (current) drug therapy
CPT/HCPCS: 96372; 99282; J0696